=== PATIENT | male | born 1940 | race Caucasian/White ===

== ENCOUNTER 2017-02-11 06:13 | Day surgery (SDC) | payer MEDICARE ==
[~2017-02-11] VITALS: Ht 180.3 cm; Wt 82.0 kg
[2017-02-11 06:40] VITALS: BP 148/88
[2017-02-11] MEDS ORDERED: HUMAN GROWTH HORMONE (06:44)
[2017-02-11] MEDS ORDERED: LACTATED RINGERS 1,000 ML IV SCH (06:45)
[2017-02-11] MEDS ORDERED: FENTANYL PF 250 MCG/5ML ONE (06:49)
[2017-02-11] MEDS ORDERED: MIDAZOLAM 1 MG/ML, 2ML ONE (06:49)
[2017-02-11] MEDS ORDERED: BUPIVACAINE/PF-EPI 0.5% 1:200K ONE (06:54)
[2017-02-11] MEDS ORDERED: LIDOCAINE 1%, 2ML SQ PRN (07:00)
[2017-02-11] MEDS ORDERED: ACETAMINOPHEN 325 MG TABLET PO PRN (07:30)
[2017-02-11] MEDS ORDERED: FENTANYL PF 100 MCG/2ML IV PRN (07:30)
[2017-02-11] MEDS ORDERED: LABETALOL 5MG/ML, 20ML IV PRN (07:30)
[2017-02-11] MEDS ORDERED: METOCLOPRAMIDE 5 MG/ML, 2ML IV PRN (07:30)
[2017-02-11] MEDS ORDERED: OXYcodone 5 MG/5 ML ORAL.SOL UDC PO PRN (07:30)
[2017-02-11] MEDS ORDERED: MEPERIDINE/PF 25MG/0.5ML IVPush PRN (07:30)
[2017-02-11] MEDS ORDERED: hydrALAzine 20 MG/ML, 1ML IV PRN (07:30)
[2017-02-11] MEDS ORDERED: PROMETHAZINE 25 MG/ML, 1ML IV PRN (07:30)
[2017-02-11] MEDS ORDERED: ONDANSETRON 2MG/ML, 2ML IVPush PRN (07:30)
[2017-02-11] MEDS ORDERED: HYDROmorphone 1 MG/ML, 1ML IV PRN (07:30)
[2017-02-11] MEDS ORDERED: BUPIVACAINE/PF-EPI 0.5% 1:200K INFIL ONE (09:03)
[2017-02-11] MEDS ORDERED: ONDANSETRON 2MG/ML, 2ML ONE (10:58)
[2017-02-11] MEDS ORDERED: CEFAZOLIN 1,000 MG ONE (10:58)
[2017-02-11] MEDS ORDERED: GLYCOPYRROLATE 0.2MG/1ML ONE (10:58)
[2017-02-11] MEDS ORDERED: PROPOFOL 10 MG/ML, 20ML ONE (10:58)
[2017-02-11] MEDS ORDERED: ROCURONIUM 10 MG/ML ONE (10:58)
[2017-02-11] MEDS ORDERED: NEOSTIGMINE 1 MG/ML, 10ML ONE (10:58)
== END 2017-02-11 12:10 | disposition home or self-care (01) ==
LOC: OUT 06:13
PROVIDERS: ATTEND Surgery
DX: K40.90 Unilateral inguinal hernia, without obstruction or gangrene, not specified as recurrent (principal); Z85.46 Personal history of malignant neoplasm of prostate; Z90.79 Acquired absence of other genital organ(s); Z72.89 Other problems related to lifestyle; Z82.49 Family history of ischemic heart disease and other diseases of the circulatory system; Z87.891 Personal history of nicotine dependence
CPT/HCPCS: 49650; 93005; C1727; C1781; J0690; J2250; J2405; J2704; J2710; J3010; J3490; J7120